=== PATIENT | male | born 1945 | race Caucasian/White ===

== ENCOUNTER 2018-01-05 08:57 | Inpatient (IN) | payer OTHER, MEDICAID ==
[~2018-01-05] VITALS: Ht 188 cm; Wt 109.4 kg
[~2018-01-05 08:57] MED LIST: APIX2.5T PO; APIX5TAB PO; BACL20TA PO; FLUO10CA13 PO; FLUO20CA8 PO; GABA300C PO; GABA300C10 PO; LOSA1TAB19 PO; LOSA25TA5 PO; METO-93 PO; METO25TA35 PO; NITR100C56 PO; OXYB5TAB7 PO; SIMV40TA3 PO; SIMV5TAB5 PO; TRAM50TA2 PO; TRAZ100T15 PO; ZOLP-413 PO
[2018-01-05] MEDS ORDERED: BACL20TA PO (09:08)
[2018-01-05] MEDS ORDERED: METO25TA35 PO (09:08)
[2018-01-05] MEDS ORDERED: APIX5TAB PO (09:08)
[2018-01-05] MEDS ORDERED: LOSA1TAB7 PO (09:08)
[2018-01-05] MEDS ORDERED: SODIUM CHLORIDE FLUSH 10ML SYR IVF ONE (09:30)
[2018-01-05] MEDS ORDERED: SODIUM CHLORIDE 0.9% 1,000ML IVBOLUS ONE (09:30)
[2018-01-05] MEDS ORDERED: PLEASE ENTER ALLERGIES MC SCH (09:30)
[2018-01-05 09:50] LABS: BASOPHILS % (AUTO) 0 % (0-1); EOSINOPHILS # (AUTO) 0.01 x10^3/uL (0-0.4); EOSINOPHILS % (AUTO) 0 % (1-7); LYMPHOCYTES # (AUTO) 0.75 x10^3/uL (1-3.4); LYMPHOCYTES % (AUTO) 11 % (22-44); MD NO; MEAN CORPUSCULAR HEMOGLOBIN 26.1 pg (27.5-34.5); MEAN CORPUSCULAR HGB CONC 32.1 g/dL (33.2-36.2); MEAN CORPUSCULAR VOLUME 81.4 fL (81-97); MEAN PLATELET VOLUME 8.9 fL (7.4-10.4); MONOCYTES # (AUTO) 0.32 x10^3/uL (0.2-0.8); MONOCYTES % (AUTO) 5 % (2-9); NEUTROPHILS % (AUTO) 84 % (42-75); PLATELET COUNT 339 x10^3/uL (130-400); RED BLOOD COUNT 4.92 x10^6/uL (4.38-5.82); RED CELL DISTRIBUTION WIDTH 15.7 % (9.4-14.8)
[2018-01-05 10:01] LABS: ALANINE AMINOTRANSFERASE 26 U/L (12-78); ALBUMIN 3.7 g/dL (3.4-5.0); ANION GAP 10 mmol/L (5-15); CALCIUM 8.9 mg/dL (8.5-10.1); CHLORIDE 102 mmol/L (98-107); CREATININE 1.01 mg/dL (0.7-1.3)
[2018-01-05 10:05] LABS: ALKALINE PHOSPHATASE 157 U/L (45-117); TOTAL PROTEIN 8.3 g/dL (6.4-8.2); TROPONIN I < 0.015 ng/mL (0.000-0.045)
[2018-01-05 11:15] LABS: MICROSCOPIC AUTO
[2018-01-05 11:34] LABS: CULTURE INDICATED? YES
[2018-01-05] MEDS ORDERED: CEFTRIAXONE PMX 1GM/50ML 50 ML IVPB ONE (12:00)
[2018-01-05] MEDS ORDERED: CEFTRIAXONE PMX 1GM/50ML 50 ML ONE (12:09)
[2018-01-05 12:54] VITALS: BP 157/95
[2018-01-05] MEDS ORDERED: ZOLPIDEM 5MG TABLET PO PRN (14:30)
[2018-01-05] MEDS ORDERED: DOCUSATE 100 MG CAPSULE PO PRN (14:30)
[2018-01-05] MEDS ORDERED: BACLOFEN 10 MG TABLET PO SCH (16:00)
[2018-01-05] MEDS: GABAPENTIN 300 MG CAPSULE PO SCH ×2 (18:12→22:22)
[2018-01-05] MEDS: SODIUM CHLORIDE 0.9% 1,000 ML IV SCH (18:41)
[2018-01-05 19:22] VITALS: BP 157/95
[2018-01-05 20:30] VITALS: BP 105/67
[2018-01-05] MEDS: APIXABAN 5 MG TABLET PO SCH (20:48)
[2018-01-05] MEDS: SIMVASTATIN 40 MG TABLET PO SCH (20:49)
[2018-01-05] MEDS: METOPROLOL TARTRATE 25 MG TABLET PO SCH (20:49)
[2018-01-05] MEDS: BACLOFEN 10 MG TABLET PO SCH (22:23)
[2018-01-06 01:39] VITALS: BP 97/59
[2018-01-06] MEDS: SODIUM CHLORIDE 0.9% 1,000 ML IV SCH ×2 (02:51→17:47)
[2018-01-06 05:08] LABS: BASOPHILS # (AUTO) 0.02 x10^3/uL (0-0.1); BASOPHILS % (AUTO) 1 % (0-1); EOSINOPHILS # (AUTO) 0.08 x10^3/uL (0-0.4); EOSINOPHILS % (AUTO) 2 % (1-7); LYMPHOCYTES # (AUTO) 1.11 x10^3/uL (1-3.4); LYMPHOCYTES % (AUTO) 26 % (22-44); MD NO; MEAN CORPUSCULAR HEMOGLOBIN 26.9 pg (27.5-34.5); MEAN CORPUSCULAR HGB CONC 32.8 g/dL (33.2-36.2); MEAN PLATELET VOLUME 9.2 fL (7.4-10.4); MONOCYTES # (AUTO) 0.37 x10^3/uL (0.2-0.8); MONOCYTES % (AUTO) 9 % (2-9); NEUTROPHILS # (AUTO) 2.78 x10^3/uL (1.8-6.8); NEUTROPHILS % (AUTO) 64 % (42-75); PLATELET COUNT 254 x10^3/uL (130-400); RED BLOOD COUNT 3.99 x10^6/uL (4.38-5.82); RED CELL DISTRIBUTION WIDTH 15.8 % (9.4-14.8)
[2018-01-06 05:19] LABS: ANION GAP 7 mmol/L (5-15); CALCIUM 8.5 mg/dL (8.5-10.1); CHLORIDE 109 mmol/L (98-107); CREATININE 0.92 mg/dL (0.7-1.3)
[2018-01-06] MEDS ORDERED: POTASSIUM CHLORIDE 20 MEQ TAB.ER.PRT PO ONE (06:00)
[2018-01-06 06:58] VITALS: BP 137/91
[2018-01-06] MEDS ORDERED: SENNA/DOCUSATE TABLET PO PRN (08:30)
[2018-01-06] MEDS ORDERED: OXYBUTYNIN CHLORIDE 5 MG TABLET PO SCH (09:00)
[2018-01-06] MEDS: METOPROLOL TARTRATE 25 MG TABLET PO SCH ×2 (09:57→20:31)
[2018-01-06] MEDS: BACLOFEN 10 MG TABLET PO SCH ×3 (09:57→20:31)
[2018-01-06] MEDS: APIXABAN 5 MG TABLET PO SCH ×2 (09:57→20:31)
[2018-01-06] MEDS: FUROSEMIDE 20 MG/2 ML IV SCH (09:57)
[2018-01-06] MEDS: NITROFURANTOIN (MACROBID) 100 MG CAPSULE PO SCH ×2 (09:58→20:31)
[2018-01-06] MEDS: POLYETHYLENE GLYCOL 17 GM PACKET PO SCH (09:58)
[2018-01-06] MEDS: GABAPENTIN 300 MG CAPSULE PO SCH ×3 (09:58→20:30)
[2018-01-06] MEDS ORDERED: SODIUM CHLORIDE 0.9% 1,000 ML IV SCH (14:05)
[2018-01-06 15:33] VITALS: BP 129/88
[2018-01-06 18:57] VITALS: BP 138/88
[2018-01-06] MEDS: SIMVASTATIN 40 MG TABLET PO SCH (20:30)
[2018-01-07 01:03] VITALS: BP 133/88
[2018-01-07] MEDS: SODIUM CHLORIDE 0.9% 1,000 ML IV SCH ×2 (04:15→22:33)
[2018-01-07 05:20] LABS: ANION GAP 6 mmol/L (5-15); CALCIUM 8.7 mg/dL (8.5-10.1); CHLORIDE 109 mmol/L (98-107); CREATININE 0.99 mg/dL (0.7-1.3)
[2018-01-07 07:31] VITALS: BP 124/78
[2018-01-07] MEDS: BACLOFEN 10 MG TABLET PO SCH ×3 (08:38→20:55)
[2018-01-07] MEDS: APIXABAN 5 MG TABLET PO SCH ×2 (08:38→20:55)
[2018-01-07] MEDS: FUROSEMIDE 20 MG/2 ML IV SCH (08:38)
[2018-01-07] MEDS: GABAPENTIN 300 MG CAPSULE PO SCH ×3 (08:39→20:55)
[2018-01-07] MEDS: METOPROLOL TARTRATE 25 MG TABLET PO SCH ×2 (08:39→20:55)
[2018-01-07] MEDS: NITROFURANTOIN (MACROBID) 100 MG CAPSULE PO SCH ×2 (08:39→20:55)
[2018-01-07] MEDS: POLYETHYLENE GLYCOL 17 GM PACKET PO SCH (09:00)
[2018-01-07 12:59] VITALS: BP 139/99
[2018-01-07 18:48] VITALS: BP 102/67
[2018-01-07] MEDS: SIMVASTATIN 40 MG TABLET PO SCH (20:55)
[2018-01-08 01:04] VITALS: BP 141/99
[2018-01-08] MEDS ORDERED: POTASSIUM CHLORIDE 20 MEQ TAB.ER.PRT PO ONE (06:00)
[2018-01-08 06:09] LABS: BASOPHILS # (AUTO) 0.02 x10^3/uL (0-0.1); BASOPHILS % (AUTO) 1 % (0-1); EOSINOPHILS % (AUTO) 2 % (1-7); LYMPHOCYTES % (AUTO) 22 % (22-44); MD NO; MEAN CORPUSCULAR HEMOGLOBIN 26.4 pg (27.5-34.5); MEAN CORPUSCULAR HGB CONC 32.1 g/dL (33.2-36.2); MEAN CORPUSCULAR VOLUME 82.2 fL (81-97); MEAN PLATELET VOLUME 9.1 fL (7.4-10.4); MONOCYTES % (AUTO) 9 % (2-9); NEUTROPHILS # (AUTO) 3.07 x10^3/uL (1.8-6.8); NEUTROPHILS % (AUTO) 67 % (42-75); PLATELET COUNT 279 x10^3/uL (130-400); RED BLOOD COUNT 4.08 x10^6/uL (4.38-5.82); RED CELL DISTRIBUTION WIDTH 15.9 % (9.4-14.8)
[2018-01-08 06:12] LABS: CHLORIDE 109 mmol/L (98-107)
[2018-01-08 06:18] LABS: ALANINE AMINOTRANSFERASE 16 U/L (12-78); ALBUMIN 2.8 g/dL (3.4-5.0); ALKALINE PHOSPHATASE 106 U/L (45-117); ANION GAP 7 mmol/L (5-15); BILIRUBIN,TOTAL 0.5 mg/dL (0.2-1.0); CALCIUM 8.2 mg/dL (8.5-10.1); CREATININE 0.93 mg/dL (0.7-1.3); TOTAL PROTEIN 6.3 g/dL (6.4-8.2)
[2018-01-08 07:05] VITALS: BP 129/81
[2018-01-08] MEDS: POLYETHYLENE GLYCOL 17 GM PACKET PO SCH (09:00)
[2018-01-08] MEDS: BACLOFEN 10 MG TABLET PO SCH ×3 (10:44→22:49)
[2018-01-08] MEDS: GABAPENTIN 300 MG CAPSULE PO SCH ×3 (10:44→22:49)
[2018-01-08] MEDS: APIXABAN 5 MG TABLET PO SCH ×2 (10:44→22:50)
[2018-01-08] MEDS: NITROFURANTOIN (MACROBID) 100 MG CAPSULE PO SCH ×2 (10:44→22:49)
[2018-01-08] MEDS: FUROSEMIDE 20 MG/2 ML IV SCH (10:44)
[2018-01-08] MEDS: METOPROLOL TARTRATE 25 MG TABLET PO SCH ×2 (10:44→21:00)
[2018-01-08 14:14] VITALS: BP 104/68
[2018-01-08 19:04] VITALS: BP 108/72
[2018-01-08] MEDS: SIMVASTATIN 40 MG TABLET PO SCH (22:49)
[2018-01-08] MEDS: TRAZODONE 50MG TABLET PO PRN (22:54)
[2018-01-09 01:08] VITALS: BP 130/84
[2018-01-09 07:14] VITALS: BP 159/96
[2018-01-09] MEDS: POLYETHYLENE GLYCOL 17 GM PACKET PO SCH (08:18)
[2018-01-09] MEDS: METOPROLOL TARTRATE 25 MG TABLET PO SCH ×2 (08:51→20:09)
[2018-01-09] MEDS: BACLOFEN 10 MG TABLET PO SCH ×3 (08:51→20:09)
[2018-01-09] MEDS: APIXABAN 5 MG TABLET PO SCH ×2 (08:51→20:10)
[2018-01-09] MEDS: NITROFURANTOIN (MACROBID) 100 MG CAPSULE PO SCH (08:51)
[2018-01-09] MEDS: GABAPENTIN 300 MG CAPSULE PO SCH ×3 (08:51→20:10)
[2018-01-09] MEDS: FUROSEMIDE 20 MG/2 ML IV SCH (08:51)
[2018-01-09] MEDS: SODIUM CHLORIDE 0.9% 1,000 ML IV SCH (08:52)
[2018-01-09 13:19] VITALS: BP 101/67
[2018-01-09] MEDS: CIPROFLOXACIN 750 MG TABLET PO SCH (16:00)
[2018-01-09] MEDS ORDERED: CIPROFLOXACIN 500 MG TABLET ONE (17:02)
[2018-01-09 19:07] VITALS: BP 120/83
[2018-01-09] MEDS: TRAZODONE 50MG TABLET PO PRN (20:09)
[2018-01-09] MEDS: SIMVASTATIN 40 MG TABLET PO SCH (20:10)
[2018-01-10 01:02] VITALS: BP 122/82
[2018-01-10] MEDS: SODIUM CHLORIDE 0.9% 1,000 ML IV SCH (04:33)
[2018-01-10] MEDS: CIPROFLOXACIN 750 MG TABLET PO SCH ×2 (04:33→16:02)
[2018-01-10 08:20] VITALS: BP 132/84
[2018-01-10] MEDS: APIXABAN 5 MG TABLET PO SCH ×2 (09:25→21:26)
[2018-01-10] MEDS: FUROSEMIDE 20 MG TABLET PO SCH (09:26)
[2018-01-10] MEDS: BACLOFEN 10 MG TABLET PO SCH ×3 (09:27→21:26)
[2018-01-10] MEDS: METOPROLOL TARTRATE 25 MG TABLET PO SCH ×2 (09:27→21:27)
[2018-01-10] MEDS: POLYETHYLENE GLYCOL 17 GM PACKET PO SCH (09:28)
[2018-01-10] MEDS: GABAPENTIN 300 MG CAPSULE PO SCH ×3 (09:28→21:26)
[2018-01-10 14:30] VITALS: BP 122/69
[2018-01-10 18:50] VITALS: BP 134/86
[2018-01-10] MEDS: TRAZODONE 50MG TABLET PO PRN (21:26)
[2018-01-10] MEDS: SIMVASTATIN 40 MG TABLET PO SCH (21:27)
[2018-01-11 01:32] VITALS: BP 122/83
[2018-01-11] MEDS: CIPROFLOXACIN 750 MG TABLET PO SCH (04:03)
[2018-01-11] MEDS: POLYETHYLENE GLYCOL 17 GM PACKET PO SCH (08:30)
[2018-01-11] MEDS: BACLOFEN 10 MG TABLET PO SCH (08:40)
[2018-01-11] MEDS: FUROSEMIDE 20 MG TABLET PO SCH (08:40)
[2018-01-11] MEDS: APIXABAN 5 MG TABLET PO SCH (08:40)
[2018-01-11] MEDS: GABAPENTIN 300 MG CAPSULE PO SCH (08:40)
[2018-01-11] MEDS: METOPROLOL TARTRATE 25 MG TABLET PO SCH (08:40)
[2018-01-11] MEDS ORDERED: FLUTICASONE NASAL SPRAY 16GM NAS SCH (12:00)
[2018-01-11] MEDS ORDERED: CIPR750T PO (12:07)
[2018-01-11] MEDS ORDERED: BACL-19 PO (12:07)
[2018-01-11] MEDS ORDERED: TRAZ50TA18 PO (12:07)
[2018-01-11 12:20] VITALS: BP 124/71
== END 2018-01-11 15:37 | DRG 689 ==
LOC: EDBD 08:57 → MERGE 08:57 → ED 11:50 → EDIP 11:51 → ED 12:28 → 3NE 12:51
PROVIDERS: ADMIT Hospitalist; ATTEND Hospitalist
PROC: 0T9B70Z Drainage of Bladder with Drainage Device, Via Natural or Artificial Opening (ICD-10-PCS; principal; 2018-01-05)
DX: N30.00 Acute cystitis without hematuria (principal); G93.40 Encephalopathy, unspecified; L89.152 Pressure ulcer of sacral region, stage 2; G35 Multiple sclerosis; G82.20 Paraplegia, unspecified; I42.9 Cardiomyopathy, unspecified; E86.0 Dehydration; J98.11 Atelectasis; I48.2 Chronic atrial fibrillation; Z93.59 Other cystostomy status; B95.2 Enterococcus as the cause of diseases classified elsewhere; I10 Essential (primary) hypertension; T50.905A Adverse effect of unspecified drugs, medicaments and biological substances, initial encounter; Z66 Do not resuscitate; I25.10 Atherosclerotic heart disease of native coronary artery without angina pectoris; Z82.0 Family history of epilepsy and other diseases of the nervous system; Z79.01 Long term (current) use of anticoagulants; Z99.3 Dependence on wheelchair; Z86.73 Personal history of transient ischemic attack (TIA), and cerebral infarction without residual deficits; Z88.0 Allergy status to penicillin; Z88.1 Allergy status to other antibiotic agents; Z79.899 Other long term (current) drug therapy; Y92.89 Other specified places as the place of occurrence of the external cause
CPT/HCPCS: 36415; 70450; 71045; 80048; 80053; 81001; 83605; 83880; 84484; 85025; 87040; 87077; 87086; 87186; 93005; J0696; J1940; J7030

== ENCOUNTER 2018-06-11 14:54 | Inpatient (IN) | payer OTHER, MEDICAID ==
[~2018-06-11] VITALS: Ht 188 cm; Wt 107.0 kg
[~2018-06-11 14:54] MED LIST changes: +BACL-19 PO; +CEFD300C37 PO; +CIPR750T PO; +HYDR12.53 PO; +LOSA1TAB7 PO; -LOSA25TA5 PO; +LOSA25TA6 PO; +TRAZ-136 PO; +TRAZ-137 PO; -TRAZ100T15 PO
[2018-06-11] MEDS ORDERED: MELATONIN (15:05)
[2018-06-11] MEDS ORDERED: CIALIS (15:05)
[2018-06-11] MEDS ORDERED: FLUOXETINE (15:05)
[2018-06-11] MEDS ORDERED: ALBUTEROL (15:05)
[2018-06-11 15:56] LABS: BASOPHILS # (AUTO) 0.05 x10^3/uL (0-0.1); BASOPHILS % (AUTO) 1 % (0-1); EOSINOPHILS # (AUTO) 0.03 x10^3/uL (0-0.4); EOSINOPHILS % (AUTO) 0 % (1-7); LYMPHOCYTES # (AUTO) 0.39 x10^3/uL (1-3.4); LYMPHOCYTES % (AUTO) 3 % (22-44); MD NO; MEAN CORPUSCULAR HEMOGLOBIN 25.3 pg (27.5-34.5); MEAN PLATELET VOLUME 9.8 fL (7.4-10.4); MONOCYTES # (AUTO) 0.52 x10^3/uL (0.2-0.8); MONOCYTES % (AUTO) 5 % (2-9); NEUTROPHILS # (AUTO) 10.34 x10^3/uL (1.8-6.8); NEUTROPHILS % (AUTO) 91 % (42-75); PLATELET COUNT 242 x10^3/uL (130-400); RED BLOOD COUNT 4.54 x10^6/uL (4.38-5.82); RED CELL DISTRIBUTION WIDTH 18.4 % (9.4-14.8)
[2018-06-11 16:05] LABS: ALANINE AMINOTRANSFERASE 20 U/L (12-78); ALBUMIN 3.6 g/dL (3.4-5.0); ANION GAP 8 mmol/L (5-15); CALCIUM 8.6 mg/dL (8.5-10.1); CHLORIDE 102 mmol/L (98-107)
[2018-06-11 16:09] LABS: ALKALINE PHOSPHATASE 152 U/L (45-117); BILIRUBIN,TOTAL 0.9 mg/dL (0.2-1.0); TOTAL PROTEIN 7.7 g/dL (6.4-8.2); TROPONIN I 0.029 ng/mL (0.000-0.045)
[2018-06-11] MEDS ORDERED: FUROSEMIDE 20 MG/2 ML IV ONE (18:30)
[2018-06-11] MEDS ORDERED: FUROSEMIDE 20 MG/2 ML ONE (18:33)
[2018-06-11] MEDS ORDERED: POLYETHYLENE GLYCOL 17 GM PACKET PO PRN (19:00)
[2018-06-11] MEDS ORDERED: ONDANSETRON ODT 4 MG PO PRN (19:00)
[2018-06-11] MEDS ORDERED: DOCUSATE 100 MG CAPSULE PO PRN (19:00)
[2018-06-11] MEDS ORDERED: GUAIFENESIN/DM 200-20MG, 10ML UDC PO PRN (19:00)
[2018-06-11] MEDS ORDERED: ENALAPRILAT 1.25 MG/ML, 2ML IVPush PRN (19:00)
[2018-06-11] MEDS ORDERED: BISACODYL 10 MG SUPP PR PRN (19:00)
[2018-06-11] MEDS ORDERED: POTASSIUM CHLORIDE 20 MEQ TAB.ER.PRT PO ONE (19:30)
[2018-06-11] MEDS ORDERED: TRAZODONE 50MG TABLET PO PRN (19:30)
[2018-06-11 20:00] VITALS: BP 138/90
[2018-06-11] MEDS: APIXABAN 5 MG TABLET PO SCH (21:06)
[2018-06-11] MEDS: GABAPENTIN 300 MG CAPSULE PO SCH (21:06)
[2018-06-11] MEDS: SIMVASTATIN 40 MG TABLET PO SCH (21:06)
[2018-06-11] MEDS: MELATONIN 5 MG TABLET PO SCH (21:06)
[2018-06-11] MEDS: BACLOFEN 10 MG TABLET PO SCH (21:06)
[2018-06-11] MEDS: FLUOXETINE HCL 20 MG CAPSULE PO SCH (21:07)
[2018-06-11] MEDS: SODIUM CHLORIDE FLUSH 10ML SYR IVF SCH (21:07)
[2018-06-11 21:53] VITALS: BP 138/90
[2018-06-11 22:37] LABS: TROPONIN I 0.045 ng/mL (0.000-0.045)
[2018-06-12 01:37] VITALS: BP 98/62
[2018-06-12 05:39] LABS: BASOPHILS # (AUTO) 0.02 x10^3/uL (0-0.1); BASOPHILS % (AUTO) 0 % (0-1); EOSINOPHILS # (AUTO) 0.05 x10^3/uL (0-0.4); EOSINOPHILS % (AUTO) 1 % (1-7); LYMPHOCYTES # (AUTO) 0.91 x10^3/uL (1-3.4); LYMPHOCYTES % (AUTO) 12 % (22-44); MD NO; MEAN CORPUSCULAR HEMOGLOBIN 26.2 pg (27.5-34.5); MEAN CORPUSCULAR VOLUME 79.4 fL (81-97); MEAN PLATELET VOLUME 9.9 fL (7.4-10.4); MONOCYTES # (AUTO) 0.77 x10^3/uL (0.2-0.8); MONOCYTES % (AUTO) 10 % (2-9); NEUTROPHILS # (AUTO) 5.76 x10^3/uL (1.8-6.8); NEUTROPHILS % (AUTO) 77 % (42-75); PLATELET COUNT 233 x10^3/uL (130-400); RED BLOOD COUNT 3.97 x10^6/uL (4.38-5.82)
[2018-06-12 05:54] LABS: CHLORIDE 104 mmol/L (98-107)
[2018-06-12 06:10] LABS: ANION GAP 7 mmol/L (5-15); CALCIUM 8.6 mg/dL (8.5-10.1); CREATININE 0.84 mg/dL (0.7-1.3); THYROID STIMULATING HORMONE 0.451 mIU/L (0.358-3.740)
[2018-06-12 07:05] VITALS: BP 108/70
[2018-06-12 07:49] LABS: TROPONIN I 0.038 ng/mL (0.000-0.045)
[2018-06-12] MEDS: POTASSIUM CHLORIDE 20 MEQ TAB.ER.PRT PO SCH ×2 (08:00→17:26)
[2018-06-12] MEDS ORDERED: FLUOXETINE HCL 20 MG CAPSULE PO SCH (09:00)
[2018-06-12] MEDS ORDERED: LOSARTAN 50MG TABLET PO SCH (09:00)
[2018-06-12] MEDS: FUROSEMIDE 20 MG/2 ML IV SCH ×2 (09:06→17:26)
[2018-06-12] MEDS: LOSARTAN 50MG TABLET PO SCH (09:09)
[2018-06-12] MEDS: SODIUM CHLORIDE FLUSH 10ML SYR IVF SCH ×2 (09:09→20:24)
[2018-06-12] MEDS: FLUOXETINE HCL 20 MG CAPSULE PO SCH ×2 (09:10→20:23)
[2018-06-12] MEDS: METOPROLOL SUCCINATE 50 MG TAB.ER.24H PO SCH (09:10)
[2018-06-12] MEDS: BACLOFEN 10 MG TABLET PO SCH ×3 (09:11→20:23)
[2018-06-12] MEDS: APIXABAN 5 MG TABLET PO SCH ×2 (09:11→20:23)
[2018-06-12] MEDS: HYDROCHLOROTHIAZIDE 12.5 MG CAPSULE PO SCH (09:12)
[2018-06-12 12:08] VITALS: BP 108/70
[2018-06-12 19:45] VITALS: BP 150/85
[2018-06-12 20:00] VITALS: BP 155/100
[2018-06-12] MEDS: GABAPENTIN 300 MG CAPSULE PO SCH (20:23)
[2018-06-12] MEDS: MELATONIN 5 MG TABLET PO SCH (20:23)
[2018-06-12] MEDS: ACETAMINOPHEN 325 MG TABLET PO PRN (20:23)
[2018-06-12] MEDS: SIMVASTATIN 40 MG TABLET PO SCH (20:23)
[2018-06-12 22:34] LABS: CULTURE INDICATED? YES; MICROSCOPIC INDICATED
[2018-06-12] MEDS: LEVOFLOXACIN/PMX 500MG/100ML 100 ML IV SCH (23:54)
[2018-06-13 01:26] VITALS: BP 115/77
[2018-06-13 08:03] VITALS: BP 121/81
[2018-06-13] MEDS: FUROSEMIDE 20 MG/2 ML IV SCH ×2 (08:05→16:38)
[2018-06-13] MEDS: POTASSIUM CHLORIDE 20 MEQ TAB.ER.PRT PO SCH ×2 (08:05→16:38)
[2018-06-13] MEDS: SODIUM CHLORIDE FLUSH 10ML SYR IVF SCH ×2 (08:07→19:56)
[2018-06-13] MEDS: APIXABAN 5 MG TABLET PO SCH ×2 (10:13→19:56)
[2018-06-13] MEDS: FLUOXETINE HCL 20 MG CAPSULE PO SCH ×2 (10:13→19:56)
[2018-06-13] MEDS: HYDROCHLOROTHIAZIDE 12.5 MG CAPSULE PO SCH (10:13)
[2018-06-13] MEDS: LOSARTAN 50MG TABLET PO SCH (10:14)
[2018-06-13] MEDS: METOPROLOL SUCCINATE 50 MG TAB.ER.24H PO SCH (10:14)
[2018-06-13] MEDS: BACLOFEN 10 MG TABLET PO SCH ×3 (10:14→19:56)
[2018-06-13 12:56] VITALS: BP 135/91
[2018-06-13] MEDS ORDERED: ARTIFICIAL TEARS 15 DROP/ML BOTTLE EACHEYE PRN (17:00)
[2018-06-13] MEDS: SIMVASTATIN 40 MG TABLET PO SCH (19:56)
[2018-06-13] MEDS: GABAPENTIN 300 MG CAPSULE PO SCH (19:56)
[2018-06-13] MEDS: MELATONIN 5 MG TABLET PO SCH (19:56)
[2018-06-13] MEDS: ACETAMINOPHEN 325 MG TABLET PO PRN (20:01)
[2018-06-13 20:05] VITALS: BP 131/81
[2018-06-13] MEDS: LEVOFLOXACIN/PMX 500MG/100ML 100 ML IV SCH (23:50)
[2018-06-14 01:03] VITALS: BP 105/68
[2018-06-14 05:14] LABS: BASOPHILS # (AUTO) 0.02 x10^3/uL (0-0.1); BASOPHILS % (AUTO) 0 % (0-1); EOSINOPHILS # (AUTO) 0.03 x10^3/uL (0-0.4); EOSINOPHILS % (AUTO) 1 % (1-7); LYMPHOCYTES # (AUTO) 0.65 x10^3/uL (1-3.4); LYMPHOCYTES % (AUTO) 14 % (22-44); MD NO; MEAN CORPUSCULAR HEMOGLOBIN 25.8 pg (27.5-34.5); MEAN CORPUSCULAR HGB CONC 32.7 g/dL (33.2-36.2); MEAN CORPUSCULAR VOLUME 78.8 fL (81-97); MEAN PLATELET VOLUME 9.7 fL (7.4-10.4); MONOCYTES # (AUTO) 0.63 x10^3/uL (0.2-0.8); MONOCYTES % (AUTO) 14 % (2-9); NEUTROPHILS # (AUTO) 3.38 x10^3/uL (1.8-6.8); NEUTROPHILS % (AUTO) 72 % (42-75); PLATELET COUNT 217 x10^3/uL (130-400); RED BLOOD COUNT 4.33 x10^6/uL (4.38-5.82); RED CELL DISTRIBUTION WIDTH 18.6 % (9.4-14.8)
[2018-06-14 05:29] LABS: ANION GAP 9 mmol/L (5-15); CALCIUM 8.7 mg/dL (8.5-10.1); CHLORIDE 99 mmol/L (98-107)
[2018-06-14 08:10] VITALS: BP 117/73
[2018-06-14] MEDS: FUROSEMIDE 20 MG TABLET PO SCH ×2 (08:33→17:20)
[2018-06-14] MEDS: HYDROCHLOROTHIAZIDE 12.5 MG CAPSULE PO SCH (08:33)
[2018-06-14] MEDS: APIXABAN 5 MG TABLET PO SCH ×2 (08:34→21:20)
[2018-06-14] MEDS: METOPROLOL SUCCINATE 50 MG TAB.ER.24H PO SCH (08:34)
[2018-06-14] MEDS: BACLOFEN 10 MG TABLET PO SCH ×2 (08:35→17:20)
[2018-06-14] MEDS: POTASSIUM CHLORIDE 20 MEQ TAB.ER.PRT PO SCH ×2 (08:35→17:20)
[2018-06-14] MEDS: LOSARTAN 50MG TABLET PO SCH (08:36)
[2018-06-14] MEDS: SODIUM CHLORIDE FLUSH 10ML SYR IVF SCH ×2 (08:36→21:19)
[2018-06-14 12:16] VITALS: BP 108/71
[2018-06-14] MEDS: FLUOXETINE HCL 20 MG CAPSULE PO SCH ×2 (12:38→21:20)
[2018-06-14] MEDS ORDERED: AMOXICILLIN/CLAV 875-125MG TABLET PO ONE (15:30)
[2018-06-14] MEDS ORDERED: DIPHENHYDRAMINE 50 MG/ML, 1ML IVPush PRN (15:30)
[2018-06-14] MEDS: AMOXICILLIN/CLAV 875-125MG TABLET PO SCH (17:30)
[2018-06-14 20:23] VITALS: BP 113/79
[2018-06-14] MEDS: MELATONIN 5 MG TABLET PO SCH (21:20)
[2018-06-14] MEDS: GABAPENTIN 300 MG CAPSULE PO SCH (21:20)
[2018-06-14] MEDS: SIMVASTATIN 40 MG TABLET PO SCH (21:20)
[2018-06-15] MEDS: BACLOFEN 10 MG TABLET PO SCH ×3 (01:00→16:58)
[2018-06-15 02:23] VITALS: BP 91/60
[2018-06-15] MEDS: AMOXICILLIN/CLAV 875-125MG TABLET PO SCH ×2 (05:17→16:58)
[2018-06-15 08:27] VITALS: BP 100/64
[2018-06-15 08:40] VITALS: BP 117/82
[2018-06-15] MEDS: METOPROLOL SUCCINATE 50 MG TAB.ER.24H PO SCH (08:40)
[2018-06-15] MEDS: LOSARTAN 50MG TABLET PO SCH (08:40)
[2018-06-15] MEDS: HYDROCHLOROTHIAZIDE 12.5 MG CAPSULE PO SCH (08:41)
[2018-06-15] MEDS: FLUOXETINE HCL 20 MG CAPSULE PO SCH ×2 (08:41→20:54)
[2018-06-15] MEDS: APIXABAN 5 MG TABLET PO SCH ×2 (08:42→20:54)
[2018-06-15] MEDS: FUROSEMIDE 20 MG TABLET PO SCH (08:42)
[2018-06-15] MEDS: POTASSIUM CHLORIDE 20 MEQ TAB.ER.PRT PO SCH ×2 (08:43→16:58)
[2018-06-15] MEDS: SODIUM CHLORIDE FLUSH 10ML SYR IVF SCH ×2 (08:44→20:53)
[2018-06-15 13:26] VITALS: BP 99/64
[2018-06-15] MEDS ORDERED: AMOX1TAB12 PO (15:54)
[2018-06-15] MEDS ORDERED: FURO20TA3 PO (15:54)
[2018-06-15] MEDS ORDERED: SULF-169 PO (15:54)
[2018-06-15 19:46] VITALS: BP 103/65
[2018-06-15] MEDS: MELATONIN 5 MG TABLET PO SCH (20:54)
[2018-06-15] MEDS: GABAPENTIN 300 MG CAPSULE PO SCH (20:54)
[2018-06-15] MEDS: SIMVASTATIN 40 MG TABLET PO SCH (20:54)
[2018-06-16] MEDS: BACLOFEN 10 MG TABLET PO SCH ×2 (01:00→09:24)
[2018-06-16 01:02] VITALS: BP 131/87
[2018-06-16] MEDS: AMOXICILLIN/CLAV 875-125MG TABLET PO SCH (04:56)
[2018-06-16 07:59] VITALS: BP 124/84
[2018-06-16] MEDS ORDERED: SULFAMETH./TRIMETHOPRIM DS 800MG/160MG TABLET PO ONE (08:30)
[2018-06-16] MEDS: METOPROLOL SUCCINATE 50 MG TAB.ER.24H PO SCH (09:23)
[2018-06-16] MEDS: POTASSIUM CHLORIDE 20 MEQ TAB.ER.PRT PO SCH (09:23)
[2018-06-16] MEDS: FLUOXETINE HCL 20 MG CAPSULE PO SCH (09:23)
[2018-06-16] MEDS: HYDROCHLOROTHIAZIDE 12.5 MG CAPSULE PO SCH (09:23)
[2018-06-16] MEDS: APIXABAN 5 MG TABLET PO SCH (09:23)
[2018-06-16] MEDS: LOSARTAN 50MG TABLET PO SCH (09:24)
[2018-06-16] MEDS: FUROSEMIDE 20 MG TABLET PO SCH (09:24)
[2018-06-16] MEDS: SODIUM CHLORIDE FLUSH 10ML SYR IVF SCH (09:24)
== END 2018-06-16 11:42 | disposition home or self-care (01) | DRG 698 ==
LOC: ED 18:08 → EDIP 18:11 → 5SO 19:48
PROVIDERS: ADMIT Family Medicine; ATTEND Family Medicine
DX: T83.518A Infection and inflammatory reaction due to other urinary catheter, initial encounter (principal); J96.01 Acute respiratory failure with hypoxia; I50.33 Acute on chronic diastolic (congestive) heart failure; G82.20 Paraplegia, unspecified; F19.20 Other psychoactive substance dependence, uncomplicated; I11.0 Hypertensive heart disease with heart failure; G35 Multiple sclerosis; D50.9 Iron deficiency anemia, unspecified; E78.5 Hyperlipidemia, unspecified; F32.9 Major depressive disorder, single episode, unspecified; G47.00 Insomnia, unspecified; I07.1 Rheumatic tricuspid insufficiency; I35.8 Other nonrheumatic aortic valve disorders; B95.2 Enterococcus as the cause of diseases classified elsewhere; B96.1 Klebsiella pneumoniae [K. pneumoniae] as the cause of diseases classified elsewhere; B96.89 Other specified bacterial agents as the cause of diseases classified elsewhere; Z16.11 Resistance to penicillins; I48.2 Chronic atrial fibrillation; Z79.01 Long term (current) use of anticoagulants; Z82.0 Family history of epilepsy and other diseases of the nervous system; L89.152 Pressure ulcer of sacral region, stage 2; Z82.49 Family history of ischemic heart disease and other diseases of the circulatory system; Z83.3 Family history of diabetes mellitus; Z86.73 Personal history of transient ischemic attack (TIA), and cerebral infarction without residual deficits; Z87.891 Personal history of nicotine dependence; Z99.3 Dependence on wheelchair; Y83.8 Other surgical procedures as the cause of abnormal reaction of the patient, or of later complication, without mention of misadventure at the time of the procedure; Y92.89 Other specified places as the place of occurrence of the external cause
CPT/HCPCS: 36415; 71045; 80048; 80053; 81001; 83735; 83880; 84443; 84484; 85025; 87040; 87077; 87086; 87186; 93005; 93306; 96374; 99285; G0378; J1956; J1940

== ENCOUNTER 2018-07-30 10:09 | Observation (INO) | payer OTHER, MEDICAID ==
[~2018-07-30] VITALS: Ht 188 cm; Wt 108.3 kg
[~2018-07-30 10:09] MED LIST changes: +ALBUTEROL; +AMOX1TAB12 PO; +CIALIS; +FLUOXETINE; +FURO20TA3 PO; +HYDR12.517 PO; -HYDR12.53 PO; +MELATONIN; +SULF-169 PO; -TRAZ-136 PO; +TRAZ50TA66 PO
[2018-07-30 11:25] LABS: BASOPHILS # (AUTO) 0.03 x10^3/uL (0-0.1); BASOPHILS % (AUTO) 0 % (0-1); EOSINOPHILS # (AUTO) 0.13 x10^3/uL (0-0.4); EOSINOPHILS % (AUTO) 2 % (1-7); LYMPHOCYTES # (AUTO) 0.92 x10^3/uL (1-3.4); LYMPHOCYTES % (AUTO) 14 % (22-44); MD NO; MEAN CORPUSCULAR HEMOGLOBIN 25.4 pg (27.5-34.5); MEAN CORPUSCULAR HGB CONC 31.9 g/dL (33.2-36.2); MEAN CORPUSCULAR VOLUME 79.7 fL (81-97); MEAN PLATELET VOLUME 9.3 fL (7.4-10.4); MONOCYTES % (AUTO) 6 % (2-9); NEUTROPHILS # (AUTO) 5.06 x10^3/uL (1.8-6.8); NEUTROPHILS % (AUTO) 78 % (42-75); PLATELET COUNT 255 x10^3/uL (130-400); RED BLOOD COUNT 5.02 x10^6/uL (4.38-5.82); RED CELL DISTRIBUTION WIDTH 19.1 % (9.4-14.8)
[2018-07-30 11:36] LABS: PROTHROMBIN TIME 10.6 Seconds (9.6-11.5)
[2018-07-30 11:37] LABS: ALANINE AMINOTRANSFERASE 31 U/L (12-78); ALBUMIN 3.5 g/dL (3.4-5.0); ANION GAP 4 mmol/L (5-15); CALCIUM 8.5 mg/dL (8.5-10.1); CHLORIDE 108 mmol/L (98-107); CREATININE 1.07 mg/dL (0.7-1.3)
[2018-07-30 11:42] LABS: ALKALINE PHOSPHATASE 142 U/L (45-117); BILIRUBIN,TOTAL 0.5 mg/dL (0.2-1.0); CREATINE KINASE, TOTAL 68 U/L (39-308); TOTAL PROTEIN 7.6 g/dL (6.4-8.2); TROPONIN I 0.016 ng/mL (0.000-0.045)
[2018-07-30] MEDS ORDERED: SODIUM CHLORIDE FLUSH 10ML SYR IVF ONE (12:00)
[2018-07-30 13:21] LABS: CULTURE INDICATED? YES; MICROSCOPIC AUTO
[2018-07-30] MEDS ORDERED: SODIUM CHLORIDE FLUSH 10ML SYR IVF PRN (14:30)
[2018-07-30] MEDS ORDERED: CEFTRIAXONE PMX 1GM/50ML 50 ML ONE (14:36)
[2018-07-30] MEDS ORDERED: CEFTRIAXONE PMX 1GM/50ML 50 ML IVPB ONE (15:00)
[2018-07-30] MEDS ORDERED: DOCUSATE 100 MG CAPSULE PO PRN (16:00)
[2018-07-30] MEDS ORDERED: TEMPLATE NON-FORMULARY MED. (Gabapentin** (Neurontin**) 300 MG) PO SCH (16:00)
[2018-07-30] MEDS ORDERED: IBUPROFEN 600 MG TABLET PO PRN (16:00)
[2018-07-30] MEDS ORDERED: ONDANSETRON ODT 4 MG PO PRN (16:00)
[2018-07-30] MEDS ORDERED: BACLOFEN 10 MG TABLET PO ONE (16:00)
[2018-07-30] MEDS ORDERED: BISACODYL 10 MG SUPP PR PRN (16:00)
[2018-07-30] MEDS ORDERED: TRAZODONE 50MG TABLET PO PRN (16:00)
[2018-07-30] MEDS ORDERED: CEFTRIAXONE PMX 1GM/50ML 50 ML IV SCH (16:00)
[2018-07-30] MEDS ORDERED: HEPARIN 5,000 UNITS/ML, 1ML SQ SCH (16:00)
[2018-07-30] MEDS: BACLOFEN 10 MG TABLET PO SCH ×2 (16:00→21:42)
[2018-07-30] MEDS ORDERED: hydrALAzine 20 MG/ML, 1ML IVPush PRN (16:00)
[2018-07-30] MEDS: SODIUM CHLORIDE 0.9% 1,000 ML IV SCH ×2 (16:35→22:21)
[2018-07-30 19:33] VITALS: BP 143/85
[2018-07-30] MEDS: SIMVASTATIN 40 MG TABLET PO SCH (21:41)
[2018-07-30] MEDS: APIXABAN 5 MG TABLET PO SCH (21:41)
[2018-07-31 01:40] VITALS: BP 137/68
[2018-07-31 05:21] LABS: BASOPHILS # (AUTO) 0.02 x10^3/uL (0-0.1); BASOPHILS % (AUTO) 0 % (0-1); EOSINOPHILS # (AUTO) 0.09 x10^3/uL (0-0.4); EOSINOPHILS % (AUTO) 2 % (1-7); LYMPHOCYTES # (AUTO) 0.98 x10^3/uL (1-3.4); LYMPHOCYTES % (AUTO) 16 % (22-44); MD NO; MEAN CORPUSCULAR HEMOGLOBIN 26.3 pg (27.5-34.5); MEAN CORPUSCULAR VOLUME 79.6 fL (81-97); MEAN PLATELET VOLUME 9.1 fL (7.4-10.4); MONOCYTES # (AUTO) 0.44 x10^3/uL (0.2-0.8); MONOCYTES % (AUTO) 7 % (2-9); NEUTROPHILS # (AUTO) 4.61 x10^3/uL (1.8-6.8); NEUTROPHILS % (AUTO) 75 % (42-75); PLATELET COUNT 251 x10^3/uL (130-400); RED BLOOD COUNT 4.62 x10^6/uL (4.38-5.82); RED CELL DISTRIBUTION WIDTH 18.3 % (9.4-14.8)
[2018-07-31 05:26] LABS: CALCIUM 8.5 mg/dL (8.5-10.1); CHLORIDE 109 mmol/L (98-107)
[2018-07-31 05:30] LABS: ANION GAP 5 mmol/L (5-15); CREATININE 1.01 mg/dL (0.7-1.3)
[2018-07-31] MEDS: SODIUM CHLORIDE 0.9% 1,000 ML IV SCH (06:12)
[2018-07-31 06:58] VITALS: BP 156/87
[2018-07-31] MEDS: APIXABAN 5 MG TABLET PO SCH ×2 (10:21→20:46)
[2018-07-31] MEDS: FUROSEMIDE 20 MG TABLET PO SCH (10:21)
[2018-07-31] MEDS: METOPROLOL SUCCINATE 50 MG TAB.ER.24H PO SCH (10:21)
[2018-07-31] MEDS: SULFAMETH./TRIMETHOPRIM DS 800MG/160MG TABLET PO SCH ×2 (10:21→20:46)
[2018-07-31] MEDS: BACLOFEN 10 MG TABLET PO SCH ×3 (10:22→20:46)
[2018-07-31] MEDS: AMOXICILLIN/CLAV 875-125MG TABLET PO SCH ×2 (10:22→20:46)
[2018-07-31 13:19] VITALS: BP 121/77
[2018-07-31] MEDS: LOSARTAN 50MG TABLET PO SCH (14:39)
[2018-07-31] MEDS: HYDROCHLOROTHIAZIDE 12.5 MG CAPSULE PO SCH (14:40)
[2018-07-31 19:31] VITALS: BP 139/89
[2018-07-31] MEDS: SIMVASTATIN 40 MG TABLET PO SCH (20:50)
[2018-08-01 01:52] VITALS: BP 133/81
[2018-08-01 07:24] VITALS: BP 136/78
[2018-08-01] MEDS: BACLOFEN 10 MG TABLET PO SCH (08:03)
[2018-08-01] MEDS: LOSARTAN 50MG TABLET PO SCH (08:03)
[2018-08-01] MEDS: HYDROCHLOROTHIAZIDE 12.5 MG CAPSULE PO SCH (08:03)
[2018-08-01] MEDS: AMOXICILLIN/CLAV 875-125MG TABLET PO SCH (08:03)
[2018-08-01] MEDS: APIXABAN 5 MG TABLET PO SCH (08:04)
[2018-08-01] MEDS: FUROSEMIDE 20 MG TABLET PO SCH (08:04)
[2018-08-01] MEDS: METOPROLOL SUCCINATE 50 MG TAB.ER.24H PO SCH (08:04)
[2018-08-01] MEDS: SULFAMETH./TRIMETHOPRIM DS 800MG/160MG TABLET PO SCH (08:04)
[2018-08-01 12:37] VITALS: BP 136/86
== END 2018-08-01 16:15 | disposition home or self-care (01) ==
LOC: ED 14:25 → INTOOBSV 14:26 → EDIP 14:26 → ED 14:41 → 3NE 17:14
PROVIDERS: ADMIT Family Medicine; ATTEND Family Medicine
DX: T83.511D Infection and inflammatory reaction due to indwelling urethral catheter, subsequent encounter (principal); G82.20 Paraplegia, unspecified; F19.20 Other psychoactive substance dependence, uncomplicated; E78.5 Hyperlipidemia, unspecified; I11.0 Hypertensive heart disease with heart failure; G35 Multiple sclerosis; I48.91 Unspecified atrial fibrillation; Z79.4 Long term (current) use of insulin; E10.9 Type 1 diabetes mellitus without complications; Z87.891 Personal history of nicotine dependence; Z99.3 Dependence on wheelchair; Z82.0 Family history of epilepsy and other diseases of the nervous system; I50.9 Heart failure, unspecified; I25.10 Atherosclerotic heart disease of native coronary artery without angina pectoris; F32.9 Major depressive disorder, single episode, unspecified; Z86.73 Personal history of transient ischemic attack (TIA), and cerebral infarction without residual deficits
CPT/HCPCS: 36415; 70450; 71045; 80048; 80053; 81001; 82140; 82550; 83605; 83880; 84484; 85025; 85610; 85730; 87040; 87077; 87086; 87186; 93005; 96365; 99285; G0378; J0696; J7030; 96374

== ENCOUNTER 2018-08-26 06:11 | Observation (INO) | payer OTHER, MEDICAID ==
[~2018-08-26] VITALS: Ht 188 cm; Wt 99.5 kg
[~2018-08-26 06:11] MED LIST changes: +LOSA25TA25 PO; -LOSA25TA6 PO
--- NOTE | 2018-08-26 06:17 | NUR ---
EKG completed. Pt reporting having sharp CP with inspiration since approx 0230 this AM. pt states he has not slept yet throughout the night. Pt states pain is intermittent. Pt denies prior similar events. Pt has suprapubic catheter, unknown date placed, pt states it was placed r/t chronic UTIs. Pt denies N/V. Pt denies radiating pain. Pt a/ox4, conversing well, breathing E/U. Pt placed on cardiac and VS monitoring.
--- NOTE | 2018-08-26 06:18 | NUR ---
Provider to bedside for pt eval.
[2018-08-26] MEDS ORDERED: cialis (06:30)
[2018-08-26] MEDS ORDERED: albuterol (06:30)
[2018-08-26] MEDS ORDERED: melatonin (06:30)
[2018-08-26] MEDS ORDERED: fluoxetine (06:30)
--- NOTE | 2018-08-26 06:33 | NUR ---
EKG DONE ON ARRIVAL
[2018-08-26 06:47] LABS: BASOPHILS # (AUTO) 0.02 x10^3/uL (0-0.1); BASOPHILS % (AUTO) 0 % (0-1); EOSINOPHILS # (AUTO) 0.06 x10^3/uL (0-0.4); EOSINOPHILS % (AUTO) 1 % (1-7); LYMPHOCYTES # (AUTO) 0.75 x10^3/uL (1-3.4); LYMPHOCYTES % (AUTO) 10 % (22-44); MD NO; MEAN CORPUSCULAR HEMOGLOBIN 26.6 pg (27.5-34.5); MEAN CORPUSCULAR HGB CONC 33.3 g/dL (33.2-36.2); MEAN CORPUSCULAR VOLUME 80.1 fL (81-97); MEAN PLATELET VOLUME 9.3 fL (7.4-10.4); MONOCYTES # (AUTO) 0.78 x10^3/uL (0.2-0.8); MONOCYTES % (AUTO) 11 % (2-9); NEUTROPHILS # (AUTO) 5.83 x10^3/uL (1.8-6.8); NEUTROPHILS % (AUTO) 78 % (42-75); PLATELET COUNT 220 x10^3/uL (130-400); RED BLOOD COUNT 4.41 x10^6/uL (4.38-5.82); RED CELL DISTRIBUTION WIDTH 19.6 % (9.4-14.8)
--- NOTE | 2018-08-26 06:55 | NUR ---
Per MD order old woodard taken out and replaced by Micah RN with 20/coude per pt report of size. Sterile technique used. This RN stand by assist. Urine collected and sent to lab. securing device in place.
[2018-08-26 06:57] LABS: INTERNATIONAL NORMALIZED RATIO 0.99 (0.93-1.1); PROTHROMBIN TIME 10.5 Seconds (9.6-11.5)
[2018-08-26 06:58] LABS: ALANINE AMINOTRANSFERASE 19 U/L (12-78); ALBUMIN 3.4 g/dL (3.4-5.0); ANION GAP 4 mmol/L (5-15); CALCIUM 8.5 mg/dL (8.5-10.1); CHLORIDE 106 mmol/L (98-107); CREATININE 1.24 mg/dL (0.7-1.3)
--- NOTE | 2018-08-26 07:01 | NUR ---
Report to Zainab SAENZ.
[2018-08-26 07:02] LABS: ALKALINE PHOSPHATASE 139 U/L (45-117); BILIRUBIN,TOTAL 0.4 mg/dL (0.2-1.0); TOTAL PROTEIN 7.4 g/dL (6.4-8.2); TROPONIN I 0.025 ng/mL (0.000-0.045)
--- NOTE | 2018-08-26 07:02 | NUR ---
RECEIVED BEDSIDE REPORT FROM LETTY CERRATO. ASSUMING PT CARE AT THIS TIME.
[2018-08-26 07:05] LABS: CULTURE INDICATED? YES; MICROSCOPIC INDICATED
--- NOTE | 2018-08-26 07:12 | NUR ---
PT RESTING ON GURNEY. NO ACUTE DISTRESS NOTED. PT CATHETER SECURED TO LEG. NO NEEDS REQUESTED AT THIS TIME.
[2018-08-26] MEDS ORDERED: SODIUM CHLORIDE 0.9%, 500ML IVBOLUS ONE ×2 (08:00→08:30)
[2018-08-26] MEDS ORDERED: CEFTRIAXONE PMX 1GM/50ML 50 ML IV ONE (08:00)
--- NOTE | 2018-08-26 08:11 | NUR ---
NATHALY RN NOTE: PATIENT AWAKE TO VOICE, MD AT BEDSIDE. MANUAL BP TAKEN. PER MD PLAN FOR A TOTAL OF 1 L BOLUS.
--- NOTE | 2018-08-26 08:24 | NUR ---
LAB BEDSIDE. BC X 2 COMPLETE. PT SLEEPING INTERMITTENTLY. PT STATES "I'M JUST TIRED. I DIDN'T SLEEP WELL LAST NIGHT." BP INCREASING. NO ACUTE DISTRESS NOTED. NO NEEDS REQUESTED AT THIS TIME.
--- NOTE | 2018-08-26 09:26 | NUR ---
PT RESTING ON GURNEY. NO ACUTE DISTRESS NOTED. PT GIVEN MORE WARM BLANKETS. AWAITING ROOM PLACEMENT ON FLOOR. NO NEEDS REQUESTED AT THIS TIME
[2018-08-26] MEDS ORDERED: GUAIFENESIN/DM 200-20MG, 10ML UDC PO PRN (09:30)
[2018-08-26] MEDS ORDERED: ENALAPRILAT 1.25 MG/ML, 2ML IVPush PRN (09:30)
[2018-08-26] MEDS ORDERED: ONDANSETRON ODT 4 MG PO PRN (09:30)
[2018-08-26] MEDS ORDERED: HYDROcodone/APAP 5/325 TABLET PO PRN (09:30)
[2018-08-26] MEDS ORDERED: morphine SULFATE 10 MG/ML, 1ML IVPush PRN (09:30)
[2018-08-26] MEDS ORDERED: DOCUSATE 100 MG CAPSULE PO PRN (09:30)
[2018-08-26] MEDS ORDERED: TRAZODONE 50MG TABLET PO PRN (09:30)
[2018-08-26] MEDS ORDERED: ACETAMINOPHEN 325 MG TABLET PO PRN (09:30)
[2018-08-26] MEDS ORDERED: HYDROCHLOROTHIAZIDE 12.5 MG CAPSULE PO ONE (09:30)
[2018-08-26] MEDS ORDERED: ONDANSETRON 2MG/ML, 2ML IVPush PRN (09:30)
--- NOTE | 2018-08-26 09:49 | NUR ---
ALL LINENS CHANGED. PT PLACED IN YELLOW GOWN. PT VERBALIZES UNDERSTANDING REGARDING POC. PT HAS HEALING WOUND ABOVE SACRUM. PT STATES HE HAS HOME CARE TO HIS HOUSE TWICE A DAY. NO NEEDS REQUESTED AT THIS TIME.
[2018-08-26 10:13] LABS: RAPID INFLUENZA A Negative (Negative); RAPID INFLUENZA B Negative (Negative)
--- NOTE | 2018-08-26 10:43 | NUR ---
PT SLEEPING ON GURNEY. NO ACUTE DISTRESS NOTED. RESPS EQUAL AND UNLABORED. VSS. WILL CONTINUE TO MONITOR.
--- NOTE | 2018-08-26 11:26 | NUR ---
PT RESTING ON GURNEY. SLEEPING INTERMITTENTLY. LAB BEDSIDE AT THIS TIME. VSS. NO ACUTE DISTRES NOTED. NO NEEDS REQUESTED AT THIS TIME.
[2018-08-26] MEDS ORDERED: GABAPENTIN 300 MG CAPSULE ONE ×2 (11:32→17:17)
[2018-08-26] MEDS ORDERED: CEFTRIAXONE PMX 1GM/50ML 50 ML ONE (11:32)
[2018-08-26] MEDS ORDERED: APIXABAN 5 MG TABLET ONE (11:32)
--- NOTE | 2018-08-26 11:44 | NUR ---
PT STATES "I HAVE CP WHEN I TAKE A DEEP BREATH. IT DOESN'T HURT WHEN I'M JUST SITTING HERE." EKG IN PROGRESS.
[2018-08-26 11:47] LABS: TROPONIN I 0.028 ng/mL (0.000-0.045)
[2018-08-26] MEDS: GABAPENTIN 300 MG CAPSULE PO SCH ×3 (11:55→22:00)
[2018-08-26] MEDS: APIXABAN 5 MG TABLET PO SCH ×2 (11:55→22:00)
[2018-08-26] MEDS: BACLOFEN 10 MG TABLET PO SCH ×3 (11:56→22:00)
--- NOTE | 2018-08-26 12:01 | NUR ---
[facility] RETURNED CALL. TOLD ABOUT CP. VSS. CARRANZA STATES SHE WILL PUT IN ORDERS. NO PHONE ORDERS GIVEN AT THIS TIME.
--- NOTE | 2018-08-26 12:16 | NUR ---
PT BEING TAKEN TO IMAGING.
--- NOTE | 2018-08-26 12:22 | NUR ---
BREAK RN- REPORT RECEIVED. PT TO CTA
[2018-08-26] MEDS ORDERED: OMNIPAQUE 350 MG/ML, 100ML BOTTLE ONE (12:34)
--- NOTE | 2018-08-26 12:43 | NUR ---
PT BACK FROM CT. MEAL GIVEN. HOSPITAL BED ORDERED.
--- NOTE | 2018-08-26 14:29 | NUR ---
LATE ENTRY FOR 1345 PT RESTING ON GURNEY. NO ACUTE DISTRESS NOTED. VSS. NO NEEDS REQUESTED AT THIS TIME.
--- NOTE | 2018-08-26 14:30 | NUR ---
PT REPOSITIONED. PILLOW PLACED UNDER LEFT SIDE.. NO ACUTE DISTRESS NOTED. VSS. WILL CONTINUE TO MONITOR.
[2018-08-26 15:10] LABS: TROPONIN I 0.022 ng/mL (0.000-0.045)
--- NOTE | 2018-08-26 16:39 | NUR ---
LATE ENTRY FOR 1530 PT RESTING ON HOSPITAL BED AT THIS TIME. NO ACUTE DISTRESS NOTED. PT VSS. PT VERBALIZES UNDERSTANDING REGARDING POC. NO NEEDS REQUESTED AT THIS TIME.
--- NOTE | 2018-08-26 17:07 | NUR ---
PT NOW COMPLAINING OF CONSTANT CP. EKG IN PROGRESS. [facility] PAGED.
--- NOTE | 2018-08-26 17:15 | NUR ---
SPOKE WITH DR. ESTRADA. DR. ESTRADA AWARE OF CP. VERBAL ORDER FOR GI COCKTAIL. DR WILL BE DOWN TO SEE NEW EKG.
[2018-08-26] MEDS ORDERED: MAALOX/HYOSCYAMINE/LIDOCAINE 45 ML BTL ONE (17:17)
[2018-08-26] MEDS ORDERED: MAALOX/HYOSCYAMINE/LIDOCAINE 45 ML BTL PO ONE (17:30)
--- NOTE | 2018-08-26 18:03 | NUR ---
REPORT TO LETTY AGUIRRE. ALL QUESTIONS ANSWERED.
[2018-08-26 18:14] VITALS: BP 100/73
--- NOTE | 2018-08-26 18:16 | NUR ---
PT TRANSPORTED TO FLOOR. PT LEFT WITH ALL PERSONAL BELONGINGS.
[2018-08-26] MEDS: SIMVASTATIN 40 MG TABLET PO SCH (22:00)
[2018-08-26] MEDS ORDERED: IBUPROFEN 200 MG TABLET ONE (22:08)
[2018-08-26] MEDS: IBUPROFEN 600 MG TABLET PO PRN (22:10)
[2018-08-27 02:09] VITALS: BP 90/56
[2018-08-27 05:11] LABS: BASOPHILS # (AUTO) 0.01 x10^3/uL (0-0.1); BASOPHILS % (AUTO) 0 % (0-1); EOSINOPHILS # (AUTO) 0.05 x10^3/uL (0-0.4); EOSINOPHILS % (AUTO) 1 % (1-7); LYMPHOCYTES % (AUTO) 21 % (22-44); MD NO; MEAN CORPUSCULAR HEMOGLOBIN 26.5 pg (27.5-34.5); MEAN CORPUSCULAR HGB CONC 32.5 g/dL (33.2-36.2); MEAN CORPUSCULAR VOLUME 81.4 fL (81-97); MEAN PLATELET VOLUME 9.4 fL (7.4-10.4); MONOCYTES # (AUTO) 0.78 x10^3/uL (0.2-0.8); MONOCYTES % (AUTO) 14 % (2-9); NEUTROPHILS # (AUTO) 3.73 x10^3/uL (1.8-6.8); NEUTROPHILS % (AUTO) 65 % (42-75); PLATELET COUNT 208 x10^3/uL (130-400); RED BLOOD COUNT 4.02 x10^6/uL (4.38-5.82); RED CELL DISTRIBUTION WIDTH 19.4 % (9.4-14.8)
[2018-08-27 05:16] LABS: ANION GAP 4 mmol/L (5-15); CHLORIDE 107 mmol/L (98-107); CREATININE 1.15 mg/dL (0.7-1.3)
[2018-08-27 05:18] VITALS: BP_SYST 82; BP_SYST 87; BP_DIAS 49; BP_DIAS 53
[2018-08-27] MEDS: METOPROLOL SUCCINATE 25 MG TAB.ER.24H PO SCH (05:21)
[2018-08-27] MEDS: GABAPENTIN 300 MG CAPSULE PO SCH ×4 (05:21→19:52)
[2018-08-27 07:00] VITALS: BP 92/49
[2018-08-27] MEDS: APIXABAN 5 MG TABLET PO SCH ×2 (08:58→19:52)
[2018-08-27] MEDS: LOSARTAN 50MG TABLET PO SCH (08:58)
[2018-08-27] MEDS: BACLOFEN 10 MG TABLET PO SCH ×3 (09:01→19:53)
[2018-08-27 09:02] VITALS: BP 106/66
[2018-08-27 13:45] VITALS: BP 95/63
[2018-08-27] MEDS ORDERED: ALUMINUM/MAG/SIMETHICONE 30 ML UDC PO PRN (16:30)
[2018-08-27 19:41] VITALS: BP 115/77
[2018-08-27] MEDS: SIMVASTATIN 40 MG TABLET PO SCH (19:52)
[2018-08-28 00:34] VITALS: BP 121/82
[2018-08-28] MEDS ORDERED: IBUPROFEN 200 MG TABLET ONE (00:38)
[2018-08-28] MEDS: IBUPROFEN 600 MG TABLET PO PRN (00:41)
[2018-08-28 05:15] VITALS: BP 112/72
[2018-08-28] MEDS: GABAPENTIN 300 MG CAPSULE PO SCH ×3 (05:16→18:12)
[2018-08-28] MEDS: METOPROLOL SUCCINATE 25 MG TAB.ER.24H PO SCH (05:16)
[2018-08-28 08:07] VITALS: BP 93/57
[2018-08-28] MEDS ORDERED: REGADENOSON 0.4 MG/5 ML SYRINGE ONE (08:12)
[2018-08-28] MEDS: APIXABAN 5 MG TABLET PO SCH (08:14)
[2018-08-28] MEDS: LOSARTAN 50MG TABLET PO SCH (08:14)
[2018-08-28] MEDS: BACLOFEN 10 MG TABLET PO SCH ×2 (08:14→18:03)
[2018-08-28] MEDS ORDERED: IBUP-1222 PO (12:28)
== END 2018-08-28 19:00 | disposition home health service (06) ==
LOC: ED 06:51 → EDIP 07:47 → INTOOBSV 07:47 → 5SO 18:20
PROVIDERS: ADMIT Family Medicine; ATTEND Family Medicine
DX: R07.81 Pleurodynia (principal); G93.41 Metabolic encephalopathy; N39.0 Urinary tract infection, site not specified; F19.20 Other psychoactive substance dependence, uncomplicated; G82.20 Paraplegia, unspecified; I25.10 Atherosclerotic heart disease of native coronary artery without angina pectoris; I48.91 Unspecified atrial fibrillation; I11.0 Hypertensive heart disease with heart failure; I50.9 Heart failure, unspecified; E78.5 Hyperlipidemia, unspecified; G47.00 Insomnia, unspecified; G35 Multiple sclerosis; Z83.3 Family history of diabetes mellitus; Z82.0 Family history of epilepsy and other diseases of the nervous system; Z86.73 Personal history of transient ischemic attack (TIA), and cerebral infarction without residual deficits; Z87.891 Personal history of nicotine dependence; Z79.4 Long term (current) use of insulin; Z87.440 Personal history of urinary (tract) infections; Z79.01 Long term (current) use of anticoagulants; Z82.49 Family history of ischemic heart disease and other diseases of the circulatory system; Z99.3 Dependence on wheelchair; Z79.899 Other long term (current) drug therapy
CPT/HCPCS: 36415; 51702; 71045; 71275; 78452; 80048; 80053; 81001; 83605; 83690; 83880; 84484; 85025; 85610; 85730; 87040; 87077; 87086; 87106; 87186; 87400; 93005; 93017; 96365; 99291; A9502; C9898; G0378; J0696; J2785; J7040; Q9967; 96374